=== PATIENT | male | born 1980 | race Hispanic/Latino ===

== ENCOUNTER 2018-01-01 16:33 | Inpatient (IN) | payer MEDICAID ==
[2018-01-01 17:00] VITALS: BMI 35.7
--- NOTE | 2018-01-01 17:45 | ED PDOC ---
Arrival/HPI - General Chief Complaint: Psychiatric Evaluation Time Seen by Provider: 01/01/18 16:37 Historian: Patient - History of Present Illness Narrative History of Present Illness (Text): 01/01/18 17:40 37 year old male, with past medical history of alcohol abuse, depression, anxiety and bipolar disorder, presents to the Emergency department for medical clearance today. Patient states he needs to be medically cleared to work at [employer] and was referred to the Emergency department by Dr. Nagel for psychiatric admission. Patient informs recent family problems prompting him to began drinking again, stating his last drink was yesterday. Patient currently denies any medical complaints. Patient denies any fever, chills, nausea, vomiting, diarrhea, abdominal pain, chest pain, shortness of breath or any other complaints. Patient denies any suicidal or homicidal ideation. Time/Duration: 24 hours Symptom Onset: Gradual Activities at Onset: Light Context: Other (Referred by Dr. Nagel) Past Medical History - Provider Review Nursing Documentation Reviewed: Yes - Cardiac Hx Cardiac Disorders: Yes Hx Hypertension: Yes - Psychiatric Hx Psychophysiologic Disorder: Yes Hx Anxiety: Yes Hx Bipolar Disorder: Yes Hx Depression: Yes Hx Substance Use: No - Surgical History Other/Comment: left clavicle, nose reconstruction Family/Social History - Physician Review Nursing Documentation Reviewed: Yes Family/Social History: No Known Family HX Smoking Status: chew Hx Alcohol Use: Yes Frequency of alcohol use: Daily Hx Substance Use: No Allergies/Home Meds Allergies/Adverse Reactions: Allergies No Known Allergies Allergy (Verified 01/01/18 23:18) Home Medications: Home Meds Medication Instructions Recorded Confirmed Woodall Carbonate [Woodall 300 mg PO TID 01/01/18 01/01/18 Carbonate 300MG] Naltrexone 01/01/18 Review of Systems - Physician Review All systems were reviewed & negative as marked: Yes - Review of Systems Constitutional: absent: Fevers Respiratory: absent: SOB Cardiovascular: absent: Chest Pain Gastrointestinal: absent: Abdominal Pain, Diarrhea, Nausea, Vomiting Physical Exam - Physical Exam Narrative Physical Exam (Text): 01/01/18 17:46 Gen: VS reviewed, alert, well developed, well nourished, nontoxic, mild distress ENT: normal pharynx Eye: EOMI, PERRL Neck: no JVD, supple, no adenopathy CV: regular rate, regular rhythm, no rubs,no murmur, no gallops, S1, S2, pulses equal and strong Pulm: no distress, clear to auscultation, no wheeze, no rhonchi, breath sounds equal, no rales Abd: soft, nontender, no guarding, no rebound, no rigidity, normal bowel sounds Ext: no edema; mild tremors Skin: good color, no rash, no cyanosis Psych: responds appropriately to questions but pressured speech; normal affect Neuro: oriented x3, CN2-12 intact grossly, motor intact, sensation intact Vital Signs Reviewed: Yes Vital Signs Temp Pulse Resp BP Pulse Ox 01/01/18 20:55 98.4 F 89 18 144/92 H 96 01/01/18 17:12 98 F 96 H 19 99 Temperature: Afebrile Blood Pressure: Normal Pulse: Regular Respiratory Rate: Normal Appearance: Positive for: Well-Appearing, Non-Toxic, Comfortable Pain Distress: None Mental Status: Positive for: Alert and Oriented X 3 Medical Decision Making ED Course and Treatment: 01/01/18 17:47 Impression: 37 year old male presents to the Emergency department medical clearance. Plan: -- EKG -- Labs -- Chest X-ray -- Reassess and disposition Prior Visits: Notes and results from previous visits were reviewed. Progress Notes: 01/01/18 18:48 CIWA score = 3 patient was seen for depression and with hx bipolar disorder, patient to be admitted for inpatient tx as per dr. kaminski. patient at this time does not exhibit acute alcohol withdrawal symptoms. patient has pending labs for medical clearance to be admitted. 01/01/18 19:[address] Obregon for pending lab results and final disposition. - Lab Interpretations Lab Results: 01/01/18 18:15 01/01/18 18:15 Lab Results 01/01/18 18:55: Urine Opiates Screen Negative, Urine Methadone Screen Negative, Ur Barbiturates Screen Negative, Ur Phencyclidine Scrn Negative, Ur Amphetamines Screen Negative, U Benzodiazepines Scrn Negative, U Oth Cocaine Metabols No result, U Cannabinoids Screen Negative 01/01/18 18:55: Urine Color Yellow, Urine Appearance Clear, Urine pH 6.5, Ur Specific [place] 1.015, Urine Protein Trace H, Urine Glucose (UA) Negative, Urine Ketones Trace H, Urine Blood Negative, Urine Nitrate Negative, Urine Bilirubin Negative, Urine Urobilinogen 0.2, Ur Leukocyte Esterase Negative, Urine RBC Negative, Urine WBC Negative, Ur Epithelial Cells 0 - 2, Urine Bacteria Trace 01/01/18 18:15: Woodall 0.4 L 01/01/18 18:15: Alcohol, Quantitative < 10 01/01/18 18:15: Salicylates < 1 L, Acetaminophen < 10.0 L 01/01/18 18:15: Sodium 140, Potassium 4.0, Chloride 101, Carbon Dioxide 26, Anion Gap 17, BUN 12, Creatinine 1.0, Est GFR ( Amer) > 60, Est GFR (Non- Af Amer) > 60, Random Glucose 127 H, Calcium 10.0, Total Bilirubin 1.0, AST 106 H, ALT 107 H, Alkaline Phosphatase 70, Total Protein 8.3, Albumin 4.7, Globulin 3.6, Albumin/Globulin Ratio 1.3 01/01/18 18:15: WBC 7.8, RBC 5.00, Hgb 16.7, Hct 46.7, MCV 93.4, MCH 33.4, MCHC 35.8, RDW 14.3, Plt Count 185, MPV 9.9, Gran % 82.0 H, Lymph % (Auto) 9.0 L, [place] % (Auto) 8.2 H, Eos % (Auto) 0.4 L, Baso % (Auto) 0.4, Gran # 6.39, Lymph # (Auto) 0.7 L, [place] # (Auto) 0.6, Eos # (Auto) 0.0, Baso # (Auto) 0.03 - RAD Interpretation Narrative RAD Interpretations (Text): 01/01/18 18:11 ekg my read: 1805: sinus rhythm at 95 bpm, nml qrs, nml axis, lvh, no acute sttw abn Radiology Orders: 01/01/18 17:02 CHEST ONE VIEW [RAD] Stat - Medication Orders Current Medication Orders: Acetaminophen (Tylenol 325mg Tab) 650 mg PO Q4 PRN PRN Reason: Pain, moderate (4-7) Last Admin: 01/01/18 23:25 Dose: 650 mg MAR Pain/Vitals Document 01/01/18 23:25 WP (Rec: 01/01/18 23:26 WP [id number]) Pain Reassessment Is This A Pain ReAssessment? No Presence of Pain Presence of Pain Yes Pain Scale Used Pain Scale Used Numeric Location Pain Location Body Oil Heaterman Description Throbbing Intensity 4 Scale Used Numeric Alleviating Factors Medication Vitals Temperature (97.6 F-99.6 F) 101.4 F Temperature Source Oral Re-Assess: HARMAN Pain/Vitals Document 01/02/18 00:25 WP (Rec: 01/02/18 00:42 WP [id number]) Pain Reassessment Is This A Pain ReAssessment? Yes Sleep Is patient sleeping during reassessment? Yes Al Hydrox/Mg Hydrox/Simethicone (Maalox Plus 30 Ml) 30 ml PO DAILY PRN PRN Reason: Upset Stomach Woodall Carbonate (Woodall Carbonate 300mg) 300 mg PO TID [facility] Last Admin: 01/04/18 08:48 Dose: 300 mg Behavioural Document 01/04/18 08:48 CV (Rec: 01/04/18 08:49 CV [id number]) Maintenance Maintenance Dose Yes Nonmedicinal Nonmedicinal Interventions Therapeutic Communication Lorazepam (Ativan) 1 mg PO Q6H PRN; Protocol PRN Reason: Anxiety Magnesium Hydroxide (Milk Of Magnesia) 30 ml PO DAILY PRN PRN Reason: Constipation Olanzapine (Zyprexa) 5 mg PO HS SAI PRN Reason: Protocol Last Admin: 01/03/18 22:39 Dose: 5 mg Behavioural Document 01/03/18 22:39 KMK (Rec: 01/03/18 22:40 KMK [id number]) Maintenance Maintenance Dose Yes Re-Assess: Reassess Psych Meds Document 01/03/18 23:39 CV (Rec: 01/04/18 09:41 CV [id number]) Reassess Psych Med Effective Quetiapine Fumarate (Seroquel) 50 mg PO HS PRN; Protocol PRN Reason: Insomnia Discontinued Medications Lorazepam (Ativan) 1 mg PO Q6H SAI PRN Reason: Protocol Last Admin: 01/04/18 08:49 Dose: 1 mg Behavioural Document 01/04/18 08:49 CV (Rec: 01/04/18 08:49 CV [id number]) Maintenance Maintenance Dose Yes Nonmedicinal Nonmedicinal Interventions Therapeutic Communication - Scribe Statement The provider has reviewed the documentation as recorded by the Scribe Ras Parnell. All medical record entries made by the Scribe were at my direction and personally dictated by me. I have reviewed the chart and agree that the record accurately reflects my personal performance of the history, physical exam, medical decision making, and the department course for this patient. I have also personally directed, reviewed, and agree with the discharge instructions and disposition. Disposition/Present on Arrival - Present on Arrival Any Indicators Present on Arrival: No History of DVT/PE: No History of Uncontrolled Diabetes: No Urinary Catheter: No History of Decub. Ulcer: No History Surgical Site Infection Following: None - Disposition Have Diagnosis and Disposition been Completed?: Yes Diagnosis: Alcohol abuse, Depression Disposition: HOSPITALIZED Disposition Time: 10:19 Patient Problems: Current Active Problems Problem Status Onset Alcohol abuse Acute Depression Acute Condition: GOOD
--- NOTE | 2018-01-01 18:57 | RAD ---
Date of service: 01/01/2018 PROCEDURE: CHEST RADIOGRAPH, 1 VIEW HISTORY: medical screening COMPARISON: None available. FINDINGS: LUNGS: Clear. PLEURA: No pneumothorax or pleural fluid seen. CARDIOVASCULAR: Normal. OSSEOUS STRUCTURES: Left clavicle ORIF. VISUALIZED UPPER ABDOMEN: Normal. OTHER FINDINGS: None. IMPRESSION: No active disease.
[2018-01-01 19:02] LABS: BASO # 0.03 K/mm3 (0.0-2.0); BASO % 0.4 % (0.0-3.0); EOS % 0.4 % (1.5-5.0); GRAN # 6.39 (1.4-6.5); HEMOGLOBIN 16.7 g/dL (14.0-18.0); LYMPH # 0.7 (1.2-3.4); MEAN CELL VOLUME 93.4 fl (80.0-105.0); MEAN CORPUSCULAR HEMOGLOBIN 33.4 pg (25.0-35.0); MEAN CORPUSCULAR HGB CONC 35.8 g/dl (31.0-37.0); MEAN PLATELET VOLUME 9.9 fl (7.0-11.0); MONO # 0.6 (0.1-0.6); MONO % 8.2 % (1.0-6.0); RED CELL DISTRIBUTION WIDTH 14.3 % (11.5-14.5); WHITE BLOOD COUNT 7.8 10^3/ul (4.5-11.0)
--- NOTE | 2018-01-01 19:10 | ED PDOC ---
Physical Exam Vital Signs Reviewed: Yes Vital Signs Temp Pulse Resp Pulse Ox 01/01/18 17:12 98 F 96 H 19 99 Temperature: Afebrile Blood Pressure: Normal Pulse: Regular Respiratory Rate: Normal Appearance: Positive for: Well-Appearing, Non-Toxic, Comfortable Pain Distress: None Mental Status: Positive for: Alert and Oriented X 3 - Systems Exam Head: Present: Atraumatic, Normocephalic Pupils: Present: PERRL Extroacular Muscles: Present: EOMI Conjunctiva: Present: Normal Mouth: Present: Moist Mucous Membranes Neck: Present: Normal Range of Motion Respiratory/Chest: Present: Clear to Auscultation, Good Air Exchange. No: Respiratory Distress, Accessory Muscle Use Cardiovascular: Present: Regular Rate and Rhythm, Normal S1, S2. No: Murmurs Abdomen: No: Tenderness, Distention, Peritoneal Signs Back: Present: Normal Inspection Upper Extremity: Present: Normal Inspection, Other (Mild tremors). No: Cyanosis , Edema Lower Extremity: Present: Normal Inspection. No: Edema Neurological: Present: GCS=15, CN II-XII Intact, Speech Normal Skin: Present: Warm, Dry, Normal Color. No: Rashes Psychiatric: Present: Alert, Oriented x 3, Normal Insight, Normal Concentration Medical Decision Making ED Course and Treatment: 01/01/18 19:06 Case endorsed to me by Dr. Sahu for pending lab results and final disposition. Patient is a 37 year old male with past medical history of alcohol abuse, depression, anxiety and bipolar disorder, presented to the Emergency department earlier today for medical clearance and psychiatric admission as requested by Dr. Cedeno. Patient is currently resting in bed in no acute distress. Patient denies any new complaints. Patient denies any suicidal or homicidal ideation. - Lab Interpretations Lab Results: 01/01/18 18:15 Lab Results 01/01/18 18:15: WBC 7.8, RBC 5.00, Hgb 16.7, Hct 46.7, MCV 93.4, MCH 33.4, MCHC 35.8, RDW 14.3, Plt Count 185, MPV 9.9, Gran % 82.0 H, Lymph % (Auto) 9.0 L, [place] % (Auto) 8.2 H, Eos % (Auto) 0.4 L, Baso % (Auto) 0.4, Gran # 6.39, Lymph # (Auto) 0.7 L, [place] # (Auto) 0.6, Eos # (Auto) 0.0, Baso # (Auto) 0.03 - RAD Interpretation Narrative RAD Interpretations (Text): CXR: no acute disease Radiology Orders: 01/01/18 17:02 CHEST ONE VIEW [RAD] Stat Business Manager College Or University: Radiologist - EKG Interpretation EKG Interpretation (Text): 01/01/18 at 18:05 NSR at 95bpm, normal axis, normal QTc 452, normal QRS, no ST/T changes - Scribe Statement The provider has reviewed the documentation as recorded by the Scribe Ras Parnell. All medical record entries made by the Scribe were at my direction and personally dictated by me. I have reviewed the chart and agree that the record accurately reflects my personal performance of the history, physical exam, medical decision making, and the department course for this patient. I have also personally directed, reviewed, and agree with the discharge instructions and disposition. Disposition/Present on Arrival - Present on Arrival Any Indicators Present on Arrival: No History of DVT/PE: No History of Uncontrolled Diabetes: No Urinary Catheter: No History of Decub. Ulcer: No History Surgical Site Infection Following: None - Disposition Have Diagnosis and Disposition been Completed?: Yes Diagnosis: Alcohol abuse, Depression Disposition: HOSPITALIZED Disposition Time: 21:15 Patient Plan: Admission Patient Problems: Current Active Problems Problem Status Onset Alcohol abuse Acute Depression Acute Condition: GOOD Referrals: PCP,NO [Primary Care Provider] - Follow up with primary Forms: [employer] (Slovak)
[2018-01-01 19:15] LABS: BLOOD UREA NITROGEN 12 mg/dL (7-21); GFR AFRICAN-AMERICAN > 60; GFR NON-AFRICAN AMERICAN > 60
[2018-01-01 19:16] LABS: ALB/GLOB RATIO 1.3 (1.1-1.8); ALBUMIN 4.7 g/dL (3.0-4.8); ALT/SGPT 107 U/L (7-56); AST/SGOT 106 U/L (17-59)
[2018-01-01 19:17] LABS: ACETAMINOPHEN < 10.0 ug/ml (10.0-20.0); SALICYLATE < 1 mg/dL (2.0-20.0)
[2018-01-01 19:22] LABS: PH,URINE 6.5 (4.7-8.0); URINE BILIRUBIN NEGATIVE (NEGATIVE); URINE BLOOD NEGATIVE (NEGATIVE); URINE GLUCOSE (UA) NEGATIVE (NEGATIVE); URINE LEUKOCYTE ESTERASE NEGATIVE Leu/uL (NEGATIVE); URINE PROTEIN TRACE mg/dL (<30 mg/dL); URINE UROBILINOGEN 0.2 E.U./dL (<1 E.U./dL)
[2018-01-01 19:24] LABS: URINE APPEARANCE CLEAR (CLEAR); URINE COLOR YELLOW (YELLOW)
[2018-01-01 19:28] LABS: URINE BACTERIA TRACE (NEG); URINE EPITHELIAL CELLS 0 - 2 /hpf (0-5); URINE RBC NEGATIVE /hpf (0-2); URINE WBC NEGATIVE /hpf (0-6)
--- NOTE | 2018-01-01 19:29 | CARD ---
APPROVED REPORT Date of service: 01/01/2018 EKG Measurement Heart [id number] <Conclusion> Normal sinus rhythm Moderate voltage criteria for LVH, may be normal variant Borderline ECG
[2018-01-01 19:51] LABS: BARBITURATES, UR NEGATIVE (NEGATIVE); BENZODIAZEPINES, UR NEGATIVE (NEGATIVE)
[2018-01-01 19:52] LABS: OPIATES, UR NEGATIVE (NEGATIVE); PHENCYCLIDINE, UR NEGATIVE (NEGATIVE)
[2018-01-01] MEDS ORDERED: Alum-Mag Hydrox-Simethicone Susp (30 mL) PO PRN (23:08)
[2018-01-01] MEDS ORDERED: Magnesium Hydroxide Susp 30 ml UD PO PRN (23:08)
[2018-01-01 23:14] VITALS: O2SAT 98
--- NOTE | 2018-01-02 02:43 | PCM.BM ---
<Jose De La Paz - Last Filed: 01/02/18 02:39> Treatment Plan Problems - Problems identified on initial assessmt Ineffective Coping Date Initiated: 01/01/18 Time Initiated: 22:30 Assessment reference: NA Status: Active Priority: 1 Medication Non-Adherence Date Initiated: 01/01/18 Time Initiated: 22:30 Assessment reference: NA Status: Active Priority: 2 Altered Sleep Patterns Date Initiated: 01/01/18 Time Initiated: 22:30 Assessment reference: NA Status: Active Priority: 3 Treatment assets and liabiliti Patient Assests: cooperative, self-reliant, ADL independent, negotiates basic needs, cognitively intact Patient Liabilities: substance abuse - Milieu Protocol Maintain good personal hygiene: daily Encourage regular showers, daily Remind patient to perform daily oral care, daily Assist patient to perform ADL's Conduct patient checks and document Observation sheet: Q15 minutes Maintain personal safety: every shift Educate patient to report safety concerns to staff, every shift Monitor environment for contraband/sharps Medication safety: Monitor for expected outcome, potential side effects: every shift, Assess barriers to learning: every shift, Assess readiness for medication education: every shift Discharge/Continuing Care - Education Needs Education Needs: Patient Medication, Patient Diagnosis/Disease Process, Patient Coping Skills - Discharge Discharge Criteria: Tolerates medication w/o severe side effects, Normal sleep pattern, Ability to care for self <Yasmine Sargent - Last Filed: 01/02/18 17:26> Family Contact Family involvement: Famliy/SO not involved <Yas South - Last Filed: 01/05/18 15:44>
[2018-01-02 06:50] LABS: GLUCOSE,FASTING 106 mg/dL (65-110); HDL CHOLESTEROL 59 mg/dL (29-60)
[2018-01-02 07:01] LABS: LDL CHOLESTEROL 118 mg/dL (0-129)
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
[2018-01-02 16:10] LABS: HEPATITIS B SURFACE AG Negative (NEGATIVE)
[2018-01-02 16:16] LABS: HEPATITIS B CORE AB NEGATIVE (NEGATIVE)
[2018-01-02 16:17] LABS: HEPATITIS A IGM NEGATIVE (NEGATIVE)
[2018-01-02 16:28] LABS: HEPATITIS C ANTIBODY NEGATIVE (NEGATIVE)
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
[2018-01-03 07:38] LABS: ALB/GLOB RATIO 1.4 (1.1-1.8); ALBUMIN 4.2 g/dL (3.0-4.8); ALT/SGPT 90 U/L (7-56); AST/SGOT 77 U/L (17-59); BLOOD UREA NITROGEN 13 mg/dL (7-21); CALCIUM 9.2 mg/dL (8.4-10.5); GFR AFRICAN-AMERICAN > 60; GFR NON-AFRICAN AMERICAN > 60
--- NOTE | 2018-01-03 09:46 | PCM.PYCHPN ---
Psychiatric Progress Note - Psychiatric Progress Note Patient seen today, length of contact: 25 MIN Problems Identified/Issues Discussed: I reviewed assessment and recent notes. Patient has been elevated and pleasant on the unit. Visible and talkative with patients and staff. He is oriented x3 and reports that his mood is "awesome" when I meet with him at bedside. Denies side effects or any new discomfort or yanick. Patient reports feeling relieved about being able to sleep the whole night last night because he was average only a few hours each night prior to admission. His responses are coherent and delusions were not elicited during this first meeting. Generally in fair behavioral control, no inappropriateness was noted by staff members thus far. Diagnostic Results: Bipolar Disorder Alcohol Use Disorder Medication Change: No Medical Record Reviewed: Yes Mental Status Examination - Homicidal Ideation Homicidal Ideation: No Goal/Treatment Plan - Goal/Treatment Plan Progress Toward Problem(s) and Goals/Treatment Plan: * c/w current tx and plan * Reviewed recent vitals, noted below: Selected Entries 01/03/18 06:42 Temperature 97.7 F Pulse Rate 70 Respiratory 20 Rate Blood Pressure 124/91 H * New weekend lab results noted below: Laboratory Results - last 24 hr 01/02/18 01/02/18 01/03/18 06:00 06:30 07:00 Sodium 141 Potassium 4.0 Chloride 104 Carbon Dioxide 26 Anion Gap 16 BUN 13 Creatinine 0.9 Est GFR ( Amer) > 60 Est GFR (Non-Af Amer) > 60 Random Glucose 110 Calcium 9.2 Total Bilirubin 0.9 AST 77 H D ALT 90 H Alkaline Phosphatase 56 Total Protein 7.2 Albumin 4.2 Globulin 3.1 Albumin/Globulin Ratio 1.4 RPR Nonreactive Hepatitis A IgM Ab Negative Hep Bs Antigen Negative Hep B Core IgM Ab Negative Hepatitis C Antibody Negative
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
--- NOTE | 2018-01-04 09:37 | PCM.PYCHPN ---
Psychiatric Progress Note - Psychiatric Progress Note Patient seen today, length of contact: 25 MIN Patient Chief Complaint: "excellent!" Problems Identified/Issues Discussed: I reviewed recent notes. Patient has been elevated and pleasant on the unit. Visible and talkative with patients and staff. He is oriented x3 and reports that his mood is "excellent" when I meet with him at bedside. Denies side effects or any new discomfort or pain. Patient reports that he slept well again last night. His responses are coherent and delusions were not elicited. Generally in fair behavioral control, no inappropriateness was noted by staff members thus far. Of note: patient with elevated blood pressures yesterday. Patient believes this is secondary to speaking with his parents and this tends to be stressful for him. He doesn't believe it is secondary to alcohol withdrawal "I know what that feels like and I don't have any of those symptoms". Diagnostic Results: Bipolar Disorder Alcohol Use Disorder Medication Change: Yes (Ativan prn started) Medical Record Reviewed: Yes Mental Status Examination - Cognitive Function Orientation: Person, Place, Situation Attention: WNL Concentration: WNL - Mood Mood: Euphoric - Affect Affect: Broad - Speech Speech: Appropriate - Formal Thought Process Formal Thought Process: No Impairment - Suicidal Ideation Suicidal Ideation: No - Homicidal Ideation Homicidal Ideation: No Goal/Treatment Plan - Goal/Treatment Plan Progress Toward Problem(s) and Goals/Treatment Plan: * c/w current tx and plan * Initiated Ativan 1 mg q6 for possible alcohol withdrawal as elevated vitals were considered secondary to alcohol use. However after discussion with patient this morning, this medication will only be offered prn. * Appreciate f/u by Dr. Charles's team on 01/03/18 who signed off. * Reviewed recent vitals, noted below: Selected Entries 01/04/18 07:43 Temperature 97.5 F L Pulse Rate 55 L Respiratory 20 Rate Blood Pressure 124/84 01/03/18 01/03/18 01/03/18 06:42 16:20 16:35 Temperature 97.7 F Pulse Rate 70 75 76 Respiratory 20 Rate Blood Pressure 124/91 H 157/111 H 146/104 H * New weekend lab results noted below: Laboratory Results - last 24 hr 01/02/18 01/02/18 01/03/18 06:00 06:30 07:00 Sodium 141 Potassium 4.0 Chloride 104 Carbon Dioxide 26 Anion Gap 16 BUN 13 Creatinine 0.9 Est GFR ( Amer) > 60 Est GFR (Non-Af Amer) > 60 Random Glucose 110 Calcium 9.2 Total Bilirubin 0.9 AST 77 H D ALT 90 H Alkaline Phosphatase 56 Total Protein 7.2 Albumin 4.2 Globulin 3.1 Albumin/Globulin Ratio 1.4 RPR Nonreactive Hepatitis A IgM Ab Negative Hep Bs Antigen Negative Hep B Core IgM Ab Negative Hepatitis C Antibody Negative
[2018-01-05 14:05] LABS: ALB/GLOB RATIO 1.4 (1.1-1.8); ALBUMIN 4.3 g/dL (3.0-4.8); BILIRUBIN,DIRECT 0.3 mg/dL (0.0-0.4)
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
[2018-01-06 06:54] VITALS: BP 124/87; PULSE 59; RESP 21
[2018-01-06 06:59] VITALS: TEMP 98
== END 2018-01-06 15:09 | disposition home or self-care (01) | DRG 430 ==
LOC: ED 16:33 → ERH 21:04 → PSYC 22:12
PROVIDERS: ADMIT Psychiatry & Neurology Addiction Medicine; ATTEND Psychiatry & Neurology Addiction Medicine
DX: F31.9 Bipolar disorder, unspecified (principal); F10.239 Alcohol dependence with withdrawal, unspecified; E78.00 Pure hypercholesterolemia, unspecified; F22 Delusional disorders; F41.9 Anxiety disorder, unspecified; I10 Essential (primary) hypertension